=== PATIENT | male | born 2000 | race Two or more races ===

== ENCOUNTER → 2024-05-21 | Emergency (ER) | payer OTHER ==
[~2024-05-21] VITALS: Ht 177.8 cm; Wt 68.0 kg
[~2024-05-21] MED LIST: ACETAMINOPHEN 500 MG GEL..CAP PO ONE
== END | disposition left against medical advice (07) ==
LOC: ER 02:00
DX: Z53.21 Procedure and treatment not carried out due to patient leaving prior to being seen by health care provider (principal)